=== PATIENT | male | born 1980 | race Caucasian/White ===

== ENCOUNTER 2021-10-15 02:24 | Emergency (ER) | payer MEDICARE ==
[~2021-10-15] VITALS: Ht 182.9 cm; Wt 74.8 kg
[2021-10-15] MEDS ORDERED: BENTYL10 MG/1 ML IM (02:38)
[2021-10-15 02:59] LABS: URINE BILIRUBIN NEGATIVE (Negative); URINE BLOOD NEGATIVE (Negative); URINE CLARITY CLEAR; URINE COLOR YELLOW; URINE GLUCOSE-RANDOM NEGATIVE (Negative); URINE KETONES TRACE (Negative); URINE LEUKOCYTES-REFLEX NEGATIVE (Negative); URINE NITRITE-REFLEX NEGATIVE (Negative); URINE PROTEIN NEGATIVE (Negative); URINE SPECIFIC GRAVITY >= 1.030 (1.005-1.030); URINE UROBILINOGEN 0.2 E.U./dl (0.2-1.0)
[2021-10-15] MEDS ORDERED: MEDROLDOSEPACK PO (03:58)
[2021-10-15 04:10] VITALS: BP 135/98
[2021-10-16] MEDS ORDERED: PREDNISONE 20 M20 MG PO (18:26)
== END 2021-10-15 04:11 | disposition home or self-care (01) ==
LOC: M.ERS 02:24
PROVIDERS: Personal Emergency Response Attendant
DX: S93.602A Unspecified sprain of left foot, initial encounter (principal); G35 Multiple sclerosis; M62.81 Muscle weakness (generalized); Z79.899 Other long term (current) drug therapy; W18.39XA Other fall on same level, initial encounter; Y93.89 Activity, other specified; Y92.091 Bathroom in other non-institutional residence as the place of occurrence of the external cause; Y99.8 Other external cause status

== ENCOUNTER 2021-10-16 16:53 | Emergency (ER) | payer MEDICARE ==
[~2021-10-16] VITALS: Ht 182.9 cm; Wt 77.1 kg
[~2021-10-16 16:53] MED LIST: BENTYL10 MG/1 ML IM; MEDROLDOSEPACK PO
[2021-10-16 18:09] LABS: URINE BILIRUBIN NEGATIVE (Negative); URINE BLOOD NEGATIVE (Negative); URINE CLARITY CLEAR; URINE COLOR YELLOW; URINE GLUCOSE-RANDOM NEGATIVE (Negative); URINE KETONES TRACE (Negative); URINE LEUKOCYTES NEGATIVE (Negative); URINE NITRITE NEGATIVE (Negative); URINE PROTEIN TRACE (Negative); URINE SPECIFIC GRAVITY >= 1.030 (1.005-1.030); URINE UROBILINOGEN 0.2 E.U./dl (0.2-1.0)
[2021-10-16 18:10] LABS: ABSOLUTE LYMPHOCYTES 0.7 thou/uL (0.8-5.3); ABSOLUTE MONOCYTES 0.8 thou/uL (0.0-1.2); ABSOLUTE NEUTROPHILS 3.2 thou/uL (1.6-8.1); BASOPHILS 0.4 %; EOSINOPHILS 0.1 %; HEMATOCRIT 45.4 % (42.0-52.0); LYMPHOCYTES 14.4 %; MCH 30.9 pg (26.0-34.0); MCHC 33.1 g/dL (28.0-37.0); MCV 93.5 fL (80.0-100.0); MONOCYTES 17.4 %; MPV 6.9 fl. (7.2-11.1); NUCLEATED RBCS 0 /100WBC; PLATELET COUNT* 196 thou/uL (150-400); POLYS 67.7 %; RBC 4.85 mil/uL (4.50-6.00); RDW-CV 13.2 % (10.5-14.5); WBC 4.7 thou/uL (4.0-11.0)
[2021-10-16 18:18] LABS: CALCIUM 8.4 mg/dL (8.5-10.1); CREATININE 1.1 mg/dL (0.6-1.3); POTASSIUM 3.4 mmol/L (3.5-5.1)
[2021-10-16 18:23] LABS: ALBUMIN 4.1 g/dL (3.4-5.0); TOTAL BILIRUBIN 0.4 mg/dL (<0.1-1.0); TOTAL PROTEIN 6.8 g/dL (6.4-8.2)
[2021-10-16] MEDS ORDERED: PREDNISONE 20 M20 MG PO (18:26)
[2021-10-16 18:39] VITALS: BP 124/77
== END 2021-10-16 18:39 | disposition home or self-care (01) ==
LOC: M.ERS 16:53
PROVIDERS: Student in an Organized Health Care Education/Training Program
DX: G35 Multiple sclerosis (principal); R53.1 Weakness; Z79.899 Other long term (current) drug therapy